=== PATIENT | male | born 2000 | race American Indian/Alaskan Native ===

== ENCOUNTER 2021-11-15 13:22 | Emergency (ER) | payer SELFPAY ==
[2021-11-15 14:18] VITALS: BP 134/82
--- NOTE | 2021-11-15 14:21 | Emergency Department Report ---
Suture/Staple Removal - HPI Chief Complaint: Recheck/Abnormal Lab/Rx Stated Complaint: STITCHES REMOVED Time Seen by Provider: 11/15/21 14:19 When Sutures or Sree Placed: 11-14 Days Ago Wound Location: Left wrist/hand ED Review of Systems ROS: Stated complaint: STITCHES REMOVED Other details as noted in HPI Comment: All other systems reviewed and negative Skin: other (laceration s/p repair) ED Past Medical Hx - Past Medical History Previous Medical History?: No - Surgical History Past Surgical History?: No Suture Removal Exam - Exam General: Vital signs noted. No distress. Alert and acting appropriately. Wound: No Pathologic Erythema, No Tenderness, No Drainage, No Pus, No Wound Dehiscence Other Systems: All other systems reviewed and are unremarkable. ED Course Vital Signs 11/15/21 14:15 Temperature 98.5 F Pulse Rate 80 Respiratory 18 Rate Blood Pressure 134/82 O2 Sat by Pulse 100 Oximetry - Procedure Description Procedures done: SUTURE REMOVAL : location right wrist/hand. all sutures removed. wound healing well. no infection. pt tolerated well. no complications Critical care attestation.: If time is entered above; I have spent that time in minutes in the direct care of this critically ill patient, excluding procedure time. ED Disposition Clinical Impression: Visit for suture removal Disposition: 01 HOME / SELF CARE / HOMELESS Is pt being admited?: No Does the pt Need Aspirin: No Condition: Stable Instructions: Wound Closure Removal, Care After Additional Instructions: Continue to keep wound clean daily with soap and water. Do not pick at crusting. Dry well and you can continue to use neosporin after cleaning. Follow up with PCP as needed. Return if worse. Referrals: JAYCOB MCGOVERN MD [Referring] - 3-5 Days Time of Disposition: 14:20
== END 2021-11-15 15:31 | disposition left against medical advice (07) ==
LOC: ED 13:22
DX: S61.511D Laceration without foreign body of right wrist, subsequent encounter (principal); X58.XXXD Exposure to other specified factors, subsequent encounter